=== PATIENT | female | born 1980 | race Caucasian/White ===

== ENCOUNTER → 2017-09-26 11:56 | Outpatient (CLI) | payer OTHER, SELFPAY ==
[2017-09-26 13:28] LABS: Amphetamine Urine VISTA NEGATIVE (<1000 ng/mL); Barbiturate Urine VISTA NEGATIVE (< 200 ng/mL); Benzodiazepine Urine VISTA NEGATIVE (< 200 ng/mL); Cocaine Urine VISTA NEGATIVE (< 300 ng/mL); Ecstacy Urine VISTA NEGATIVE (< 500 ng/mL); Methadone Urine VISTA NEGATIVE (< 300 ng/mL); PCP Urine VISTA NEGATIVE (< 25 ng/mL); THC Urine VISTA NEGATIVE (< 50 ng/mL); Vista UDS pH Range 7
== END ==
PROVIDERS: PCP Family Medicine; Visit Provider Anesthesiology Pain Medicine
DX: F11.20 Opioid dependence, uncomplicated (principal)
CPT/HCPCS: 80307

== ENCOUNTER → 2017-12-26 10:31 | Outpatient (CLI) | payer OTHER, SELFPAY ==
--- NOTE | 2017-12-26 10:33 | RAD_ITS ---
STUDY: X-RAY - LUMBAR SPINE REASON FOR EXAM: Female, 37 years old. Followed to-3 days ago. History of spinal fusion. TECHNIQUE: 3 view(s) of the lumbar spine were obtained. COMPARISON: None FINDINGS: Normal lumbar lordosis. There is no substantial scoliosis. There is a normal alignment of the vertebrae. There is posterior fusion at L5-S1 with intervertebral disc prosthesis placement. There is intervertebral disc space narrowing at L5-S1. The soft tissue structures are unremarkable. RAD/Lumbar Spine 2 or 3 Views IMPRESSION: Postsurgical changes at L5-S1 with no complications identified. Electronically Signed: Yash Hutton MD at 16:57 EDT , Service support ,
== END ==
PROVIDERS: Family Provider Family Medicine; PCP Family Medicine; Visit Provider Anesthesiology Pain Medicine
DX: Z98.1 Arthrodesis status (principal)
CPT/HCPCS: 72100

== ENCOUNTER → 2018-05-15 16:39 | Outpatient (CLI) | payer OTHER, SELFPAY ==
[2018-05-15 17:46] LABS: Amphetamine Urine VISTA POSITIVE (<1000 ng/mL); Barbiturate Urine VISTA NEGATIVE (< 200 ng/mL); Benzodiazepine Urine VISTA NEGATIVE (< 200 ng/mL); Cocaine Urine VISTA NEGATIVE (< 300 ng/mL); Ecstacy Urine VISTA NEGATIVE (< 500 ng/mL); Methadone Urine VISTA NEGATIVE (< 300 ng/mL); PCP Urine VISTA NEGATIVE (< 25 ng/mL); THC Urine VISTA NEGATIVE (< 50 ng/mL); Vista UDS pH Range 6
--- OUTSIDE RECORDS SUMMARY | 2018-06-27 15:58 | XMS RPT_ITS ---
:1980 Author Organization [facility] Care Team Providers Name Role Phone GERRI SHORT Admitting Unavailable GERRI SHORT Attending Unavailable GERRI SHORT Primary Care Unavailable NO, DOCTOR ON Consulting Unavailable AVA ARAMBULA Referring Unavailable VILLA VITAL DO Admitting Unavailable VILLA VITAL DO Attending Unavailable NO, DOCTOR ON Referring Unavailable VILLA VITAL DO Primary Care Unavailable NO, DOCTOR ON Consulting Unavailable VOLVAISHNAVI Parks DO Admitting Unavailable VOLVAISHNAVI Parks DO Attending Unavailable VAISHNAVI WAGNER DO Primary Care Unavailable NO, DOCTOR ON Consulting Unavailable Ava Arambula Attending Unavailable Gerri Short Referring Unavailable Primay Care Physicia, No Primary Care Unavailable Ava Arambula Attending Unavailable Gerri Short Primary Care Unavailable Ava Arambula Attending Unavailable Ava Arambula Referring Unavailable Gerri Short Primary Care Unavailable PROBLEMS PROBLEMS DATE TYPE CONDITION / CODE ATTENDING STATUS SOURCE 05/15/2018 Unknown F11.20 - Opioid Basali, Ayman Active [place] dependence, Community uncomplicated / Hospital F11.20(ICD-10) Repository PROCEDURES PROCEDURES No Procedure Records FoundRESULTS RESULTS URINE DRUG SCREEN Collected: 05/15/2018 Status: F Source: [place] (VISTA) 4:45 PM [facility] REPOSITORY Order Comment: List of Drugs Taken or Suspected? UNK TYPE CODE TESTS RESULT OUT OF RANGE REFERENCE UNITS LAB L505.0075 TO BE Normal CONFIRMED Result Comment: CONFIRMATORY TESTING FOR ALL POSITIVE URINE DRUG SCREEN RESULTS WILL ONLY BE SENT OUT UPON PHYSICIAN ORDER. VISTA Urine Drug Screen methods provide only preliminary analytical test results. A more specific alternate chemical method must be used in order to obtain a confirmed analytical result. Gas chromatography/mass spectrometery (GC/MS) is the preferred confirmatory method. Clinical consideration and professional judgement should be applied to any drug of abuse test result, particularly when preliminary positive results are used. URINE TCA TESTING MUST BE ORDERED SEPARATELY. USE TEST MNEMONIC: [facility] LAB L505.5005 VISTA UDS PH 6 Normal LAB L505.5015 <1000 High ng/mL AMPHETAMINES POSITIVE LAB L505.5025 < 200 ng/mL BARBITIURATES Normal NEGATIVE LAB L505.5035 < 200 ng/mL BENZODIAZIPINE Normal NEGATIVE LAB L505.5045 < 300 ng/mL COCAINE Normal NEGATIVE LAB L505.5055 < 500 ng/mL ECSTACY Normal NEGATIVE LAB L505.5065 < 300 ng/mL METHADONE Normal NEGATIVE LAB L505.5075 < 300 High ng/mL OPIATES POSITIVE LAB L505.5085 < 25 ng/mL PCP Normal NEGATIVE LAB L505.5095 < 50 ng/mL THC Normal NEGATIVE Performed By: #### L505.5000 #### [facility] [address] [place], [place], [id number] MISCELLANEOUS LAB Collected: 05/15/2018 Status: F Source: [place] PROCEDURE 4:45 PM [facility] REPOSITORY Order Comment: Test(s) Ordered: [id number] URINE DRUG SCEEN TYPE CODE TESTS RESULT OUT OF RANGE REFERENCE UNITS LAB L801.1541 Normal [facility] [place] Result Comment: TEST RESULT UNITS REF INTERVAL [id number] 6+Oxycodone-Bund Amphetamines Positive Uqtrbw=0925 Please Note: Amphetamine test includes Amphetamine and Methamphetamine. Amphetamine Positive Amphetamine GC/MS Conf 1220 ng/mL Zodywj=113 Methamphetamine Negative Iiupmw=175 Barbiturate Negative ng/mL Wexsmi=126 Benzodiazepines Negative ng/mL Wibdcq=869 Cannabinoids Negative ng/mL Cutoff=20 Cocaine (Metabolite) Negative ng/mL Tvrxdn=814 Opiates Negative ng/mL Sdorko=243 Opiate test includes Codeine, Morphine, Hydromorphone, Hydrocodone. Please Note: Confirmation performed by Mass Spectrometry Oxycodone/Oxymorph Positive Yxhmdu=684 Test includes Oxycodone and Oxymorphone Oxycodone Negative Bupgwx=333 Oxymorphone Positive Oxymorphone (GC/MS) 1072 ng/mL Btayiq=840 TESTING PERFORMED AT [facility]. ORIGINAL REPORT ON FILE IN LAB CONTAINS ADDITIONAL TEST SITE INFORMATION. Performed By: #### L801.1541 #### [facility] [address] [place], [address] LUMBAR SPINE 2 OR 3 Observed: 12/26/2017 Status: F Source: JAVA VIEWS 10:33 AM [facility] REPOSITORY [facility] Imaging Services [address] [place] [id number] Lumbar Spine 2 or 3 Views MR#: [id number] Acct: [id number] Name: HARI BRUCE Rep #: [id number] : 1980 F 37 From: Yash Hutton MD PCP: Gerri Short Status: REG CLI Study: Lumbar Spine 2 or 3 Views Date of Exam: 12/26/17 Exam# [id number] Ordering Dr: Ava Arambula MD STUDY: X-RAY - LUMBAR SPINE REASON FOR EXAM: Female, 37 years old. Followed to-3 days ago. History of spinal fusion. TECHNIQUE: 3 view(s) of the lumbar spine were obtained. COMPARISON: None FINDINGS: Normal lumbar lordosis. There is no substantial scoliosis. There is a normal alignment of the vertebrae. There is posterior fusion at L5-S1 with intervertebral disc prosthesis placement. There is intervertebral disc space narrowing at L5-S1. The soft tissue structures are unremarkable. RAD/Lumbar Spine 2 or 3 Views IMPRESSION: Postsurgical changes at L5-S1 with no complications identified. Electronically Signed: Yash Hutton MD at 16:57 EDT , Service support , CC: Ava Arambula MD; Gerri Short Ortho/Prosthetic Aide: Signed URINE DRUG SCREEN Collected: 09/26/2017 Status: F Source: [place] (VISTA) 12:02 PM [facility] REPOSITORY Order Comment: Comments: RUN LOWEST TEST List of Drugs Taken or Suspected? UNK TYPE CODE TESTS RESULT OUT OF RANGE REFERENCE UNITS LAB L505.0075 TO BE Normal CONFIRMED Result Comment: CONFIRMATORY TESTING FOR ALL POSITIVE URINE DRUG SCREEN RESULTS WILL ONLY BE SENT OUT UPON PHYSICIAN ORDER. VISTA Urine Drug Screen methods provide only preliminary analytical test results. A more specific alternate chemical method must be used in order to obtain a confirmed analytical result. Gas chromatography/mass spectrometery (GC/MS) is the preferred confirmatory method. Clinical consideration and professional judgement should be applied to any drug of abuse test result, particularly when preliminary positive results are used. URINE TCA TESTING MUST BE ORDERED SEPARATELY. USE TEST MNEMONIC: [facility] LAB L505.5005 VISTA UDS PH 7 Normal LAB L505.5015 <1000 ng/mL AMPHETAMINES Normal NEGATIVE LAB L505.5025 < 200 ng/mL BARBITIURATES Normal NEGATIVE LAB L505.5035 < 200 ng/mL BENZODIAZIPINE Normal NEGATIVE LAB L505.5045 < 300 ng/mL COCAINE Normal NEGATIVE LAB L505.5055 < 500 ng/mL ECSTACY Normal NEGATIVE LAB L505.5065 < 300 ng/mL METHADONE Normal NEGATIVE LAB L505.5075 < 300 High ng/mL OPIATES POSITIVE LAB L505.5085 < 25 ng/mL PCP Normal NEGATIVE LAB L505.5095 < 50 ng/mL THC Normal NEGATIVE Performed By: #### L505.5000 #### [facility] [place], [address] MISCELLANEOUS LAB Collected: 09/26/2017 Status: F Source: [place] PROCEDURE 12:02 PM [facility] REPOSITORY Order Comment: Comments: RUN LOWEST TEST Test(s) Ordered: [id number] TYPE CODE TESTS RESULT OUT OF RANGE REFERENCE UNITS LAB L801.1541 Normal [facility] [place] Result Comment: TEST RESULT UNITS REF INTERVAL [id number] 6+Oxycodone-Bund Amphetamines, Urine Negative ng/mL Dgebdh=1874 Amphetamine test includes Amphetamine and Methamphetamine. Barbiturate Negative ng/mL Qbjijk=319 Benzodiazepines Negative ng/mL Ucqfsd=341 Cannabinoids Negative ng/mL Cutoff=20 Cocaine (Metabolite) Negative ng/mL Yzvtif=461 Opiates Positive ng/mL Zvihio=957 Opiate test includes Codeine, Morphine, Hydromorphone, Hydrocodone. Please Note: Confirmation performed by Mass Spectrometry Codeine Negative Jsqggv=017 Morphine Negative Idpglv=970 Hydromorphone Positive Hydromorphone Confirm 616 ng/mL Grsruz=204 Hydrocodone Positive Hydrocodone Confirm 654 ng/mL Ogmgia=010 Oxycodone/Oxymorphone, Urine Negative ng/mL Ilrcrj=446 Test includes Oxycodone and Oxymorphone TESTING PERFORMED AT [facility]. ORIGINAL REPORT ON FILE IN LAB CONTAINS ADDITIONAL TEST SITE INFORMATION. Performed By: #### L801.1541 #### [facility] [address] [place], [address] EMERGENCY DEPARTMENT Observed: 09/12/2017 Status: F Source: BETO ROSS SUMMARY 8:19 AM [facility] EMERGENCY DEPARTMENT SUMMARY NAME NUMBER SEX AGE ADMIT DISC TYPE MED.RECORD# ALSPACH SEPTEMBER [id number] F 37 08/24/17 08/24/17 Kathryn [id number] ROOM:ER-C DATE OF :1980 PHYSICIAN NO.:[id number] PHYSICIAN NAME:Villa Vital D.O. PHYSICIAN:NO DOCTOR ON ADMISSION SHEET CHIEF COMPLAINT: Epigastric pain. HISTORY OF PRESENT ILLNESS: This patient presents to the emergency department secondary to symptoms that began this morning. She states that she had some left shoulder pain with some shortness of breath and a couple of hours prior to coming to the ED developed severe, sharp, stabbing epigastric pain. She does admit to a previous history of GERD though states her symptoms have never been this severe in the past. She denies any nausea or vomiting. PAST MEDICAL HISTORY: Positive for GERD, cervical cancer, back pain. PAST SURGICAL HISTORY: Includes hysterectomy and back surgery. MEDICATIONS: Medication list includes Prilosec, Vicodin. ALLERGIES: Include Imitrex, Tramadol, methadone and Penicillin. FAMILY HISTORY: Positive for mother with a history of [place] at age 50. Heart score is 1. SOCIAL HISTORY: Patient admits to smoking. Admits to rate alcohol use. Denies any drug use. PHYSICAL EXAMINATION: Temperature 97.5, pulse 102, respirations 16, blood pressure 124/83. Pulse oximetry is 98% on room air. In general, the patient is alert, awake, oriented, appears to be in obvious distress secondary to epigastric pain, nontoxic, cooperative to evaluation. HEENT: Unremarkable with moist mucous membranes Neck is supple without meningismus. Heart is regular rate and rhythm without murmurs, heaves, lift, or thrills. Lungs are essentially clear to auscultation bilaterally. Respirations are easy and symmetric without retractions or tachypnea. Abdomen is soft with focal tenderness in the epigastrium. There is no palpable mass appreciated. There is no rebound or rigidity. There is some voluntary guarding. Skin is warm, soft, dry and intact without rash. Peripheral pulses are +2/4 and present in all four extremities. Capillary refill is less than 2 seconds. No focal neurologic deficits are appreciated. DIAGNOSTIC DATA: Initial EKG reveals sinus rhythm, 95 beats per minute with no acute ST-T wave changes. Subsequently blood work was obtained. White cell count was slightly elevated at 11.9. Hemoglobin was 13.0, hematocrit was 36.9, platelets are 216,000. No left shift is appreciated. PT is 11.4, PTT is 29.1 and INR is 1. D-dimer was high at 457. Magnesium was normal at 2. B-type Natriuretic Peptide is 10. Troponin-I was less than 0.01. CMP was unremarkable except for a glucose of 122. EMERGENCY DEPARTMENT COURSE AND TREATMENT: Due to the patient's elevated D-dimer, a CT of the chest was performed. No pulmonary artery embolism is identified. The thoracic aorta is intact. Emphysema. No pneumothorax or pleural effusion and right hilar lymphadenopathy which measures out 1.7 x 1.6 cm. During the course of the ED visit, the patient was treated with intravenous fluids, Zofran, morphine as well as a GI cocktail. I had a detailed discussion with the patient concerning laboratory results, CT scan, EKG findings and plan of care. DIAGNOSIS: Gastritis. PLAN/DISPOSITION: She was told to increase omeprazole to 40 mg a day. She also was given a prescription for Carafate. An OARRS report was performed with regard to overdose risk of 500. Therefore, no further narcotics were prescribed for the patient. She was discharged home in stable satisfactory condition. Referred back to her primary care doctor, Dr. Short, for follow up in 5 days. D: Villa Vital DO TD: 20:20 JOB #: [id number] Electronically signed by: Villa Vital D.O. 09/12/17 08:19 Transcribed by: tania 08/25/2017 17:36 CT CHEST (PE PROTOCOL) Observed: 08/24/2017 Status: F Source: BETOJACKELYN ROSS 7:52 PM [place] [address] Patient: TEOSeptember Phone#: : 1980 Age: 37 Gender: F Pt. Type: ER Account: [id number] Location: 052 Ordering: VILLA VITAL Exam Date: 08/24/2017/19:35 Family Phys: NO DOCTOR Charge Code: [id number] Physician: Faulk Order #: [id number] DLP Dose#: PROCEDURE: CT CHEST WITH CONTRAST FOR PE COMPARISON: None. INDICATIONS: Chest pain TECHNIQUE: After obtaining the patient's consent, CT images were obtained with non-ionic intravenous contrast material. Multi-planar images were created to optimize visualization of vascular anatomy with MPR/MIPS and 3D imaging. All CT scans at this facility use dose modulation, iterative reconstruction, and/or weight based dosing when appropriate to reduce radiation dose to as low as reasonably achievable. IV CONTRAST: Omnipaque 350,74ml TOTAL DOSE: 9.0 CTDIvol(mGy) FINDINGS: VASCULATURE: Normal. No visible pulmonary arterial thrombus or attenuation. AORTA: No aortic aneurysm. LUNGS: There emphysematous changes in the upper lobes. There are dependent changes. MARCELLO: There are prominent right hilar lymph nodes, likely reactive. There is a calcified left hilar lymph node. MEDIASTINUM: There are small reactive mediastinal lymph nodes. CARDIAC: Normal. No enlargement, pericardial thickening, or significant calcification. PLEURA: Normal. No mass or effusion. CHEST WALL: Normal. No mass or axillary adenopathy. LIMITED ABDOMEN: There is a calcified granuloma in the spleen. BONES: Normal. No bony lesion or fracture. OTHER: Negative. Continued Report - Page 2 of 2 Patient: TEOSeptember Phone#: : 1980 Age: 37 Gender: F Pt. Type: ER Account: [id number] Location: 052 Ordering: VILLA VITAL Exam Date: 08/24/2017/19:35 Family Phys: NO DOCTOR Charge Code: [id number] Physician: Faulk Order #: [id number] DLP Dose#: CONCLUSION: 1. No pulmonary embolism. No other acute pulmonary parenchymal abnormality. 2. Emphysematous changes in the upper lobes. 3. Nonspecific prominent right hilar lymph nodes, possibly reactive. Dictated by: Adrianna Mckeon MD on 08/25/2017 at 8:51 Approved by: Adrianna Mckeon MD on 08/25/2017 at 8:51 CBC Collected: 08/24/2017 Status: F Source: BETO ROSS 6:15 PM [facility] REPOSITORY TYPE CODE TESTS RESULT OUT OF RANGE REFERENCE UNITS LAB CBC(LOINC) CBC Result Comment: CBC-COMPLETE BLOOD COUNT LAB WBC(LOINC) 4.5 - 10.8 x 10EE3/UL WBC High 11.9 LAB RBC(LOINC) 4.10 - x 10EE6/UL 5.30 RBC Low 3.84 LAB HEMOGLOBIN(LOINC 12.0 - g/dl ) 16.0 HEMOGLOBIN 13.0 LAB HEMATOCRIT(LOINC 34.0 - % ) 46.0 HEMATOCRIT 36.9 LAB MCV(LOINC) 80 - 99 fl MCV 96 LAB MCH(LOINC) 27 - 33 pg MCH High 34 LAB MCHC(LOINC) 32 - 36 X10 3 MCHC 35 LAB RDW/CV(LOINC) 12.0 - % 15.6 RDW/CV 12.9 LAB PLATELET(LOINC) 150 - 450 x10EE3/UL PLATELET 216 LAB MPV(LOINC) 6.6 - 10.5 fl MPV 9.9 Result Comment: AUTOMATED DIFFERENTIAL LAB NEUT %(LOINC) 46.0 - 76.0 % NEUT % 48.6 LAB LYMPH %(LOINC) 20.0 - 45.0 % LYMPH % 38.9 LAB MONOS %(LOINC) 0.0 - 10.0 % MONOS % High 10.1 LAB EO %(LOINC) 0.0 - 7.0 % EO % 1.5 LAB BASO %(LOINC) 0.0 - 2.0 % BASO % 0.9 LAB Lymph #(LOINC) 0.80 - 2.80 x10EE3/U L Lymph # High 4.60 LAB Neut #(LOINC) 1.50 - 7.10 x10EE3/U L Neut # 5.80 LAB [place] #(LOINC) 0.20 - 1.00 x10EE3/U L [place] # High 1.20 LAB EO #(LOINC) 0.00 - 0.50 x10EE3/U L EO # 0.20 LAB Baso #(LOINC) 0.00 - 0.10 x10EE3/U L Baso # 0.10 LAB MANUAL DIFF(LOINC) MANUAL DIFF N/A LAB MORPHOLOGY(LOINC ) MORPHOLOGY N/A Result Comment: {CD] Performed By: #### [id number] #### [place] [address] PROTHROMBIN TIME AND Collected: 08/24/2017 Status: F Source: [facility] INR 6:15 [facility] REPOSITORY TYPE CODE TESTS RESULT OUT OF REFERENCE UNITS RANGE LAB PROTHROMBIN TIME AND INR(LOINC) PROTHROMBIN TIME AND INR Result Comment: PROTHROMBIN TIME AND INR LAB PT-COUMADIN(LOINC) sec PT-COUMADIN 11.4 LAB INR(LOINC) 0.8 - 1.2 INR 1.0 Result Comment: THE HEMOSIL THROMBOPLASTIN REAGENT USED IN THE PROTHROMBIN TIME TEST INTERACTS WITH THE DRUG CUBICIN (DAPTOMYCIN) AND WILL RESULT IN FALSELY ELEVATED PT / INR RESULTS INR INTERPRETATION INR INDICATION PREVENTION AND TREATMENT OF THROMBOEMBOLISM ASSOCIATED WITH: 2.0 - 3.0 ATRIAL FIBRILLATION, BIOPROSTHETIC HEART VALVES, PULMONARY EMBOLISM, VENOUS THROMBOSIS, SYSTEMIC EMBOLISM POST MYOCARDIAL INFARCTION 2.5 - 3.5 MECHANICAL HEART VALVES Performed By: #### [id number] #### [place] [address] D-DIMER, QUANTITATIVE Collected: 08/24/2017 Status: F Source: [facility] 6:15 [facility] REPOSITORY TYPE CODE TESTS RESULT OUT OF REFERENCE UNITS RANGE LAB D-DIMER, QUANTITATI VE(LOINC) D-DIMER, QUANTITATIVE Result Comment: QUANT D-DIMER LAB D-DIMER 0 - 230 ng/ml QUANT(LOINC) High D-DIMER QUANT 457 Performed By: #### [id number] #### [place] [address] TROPONIN Collected: 08/24/2017 Status: F Source: [facility] 6:15 [facility] REPOSITORY TYPE CODE TESTS RESULT OUT OF REFERENCE UNITS RANGE LAB TROPONIN 0.00 - 0.05 ng/ml I(LOINC) TROPONIN I <0.01 Result Comment: Elevated troponin (above the 99th percentile) usually indicates myocardial ischemia. Results must be interpreted within the clinical setting. 1.Non-ischemic pathology can also cause elevated troponin levels (e.g., acute pulmonary embolism, myocarditis, pericarditis, heart failure, intracranial injury, rhabdomyolisis, sepsis, shock and renal insufficiency). 2.Approximately 1% of healthy adults have elevated troponin levels. 3.Analytical false positive results rarely occur(due to multiple interferences such as heterophile antibodies). Performed By: #### [id number] #### [facility],[address] [place] [address] CMP WITH EGFR Collected: 08/24/2017 Status: F Source: [facility] 6:15 PM [facility] REPOSITORY TYPE CODE TESTS RESULT OUT OF RANGE REFERENCE UNITS LAB CMP with eGFR(LOINC) CMP with eGFR Result Comment: COMPREHENSIVE METABOLIC PANEL LAB SODIUM(LOINC) 136 - 145 mmol/l SODIUM 138 LAB POTASSIUM(LOINC) 3.5 - 5.1 mmol/L POTASSIUM 3.5 LAB CHLORIDE(LOINC) 98 - 107 mmol/L CHLORIDE 107 LAB CO2(LOINC) 21.0 - mmol/L 31.0 CO2 23.1 LAB GLUCOSE(LOINC) 74 - 106 mg/dl GLUCOSE High 122 LAB BUN(LOINC) 6 - 20 mg/dl BUN 10 LAB CREATININE(LOINC) 0.6 - 1.2 mg/dl CREATININE 0.7 LAB AST/SGOT(LOINC) 13 - 39 U/L AST/SGOT 13 LAB ALK PHOS(LOINC) 38 - 126 U/L ALK PHOS 46 LAB CALCIUM(LOINC) 8.6 - mg/dl 10.2 CALCIUM 9.0 LAB TOTAL 6.4 - 8.3 g/dl PROTEIN(LOINC) TOTAL PROTEIN 6.5 LAB ALBUMIN(LOINC) 3.4 - 4.8 g/dL ALBUMIN 3.8 LAB GLOBULIN(LOINC) 1.5 - 3.8 G/DL GLOBULIN 2.7 LAB A/G RATIO(LOINC) 0.9 - 1.6 A/G RATIO 1.4 LAB TOTAL BILI(LOINC) 0.0 - 1.5 mg/dl TOTAL BILI 0.2 LAB B/C RATIO(LOINC) 0 - 30 ratio B/C RATIO 14 LAB ALT/SGPT(LOINC) 8 - 35 U/L ALT/SGPT 14 LAB ANION GAP(LOINC) 10 - 20 mmol/L ANION GAP 11 LAB AGE(LOINC) years AGE 37 LAB eGFR(LOINC) 60 - 999 ML/MINUTE eGFR >60 LAB eGFR(AA)(LOINC) 60 - 999 ML/MINUTE eGFR(AA) >60 Result Comment: ACCORDING TO THE NATIONAL KIDNEY DISEASE EDUCATION PROGRAM(NKDE), A NORMAL eGFR IS A VALUE GREATER THAN OR EQUAL TO 60 ML/MIN/1.73 SQ METERS. CHRONIC KIDNEY DISEASE: <60mL/MIN/1.73 SQ METERS KIDNEY FAILURE: <15mL/MIN/1.73 SQ METERS THIS TEST SHOULD ONLY BE USED FOR PATIENTS 18 YEARS OF AGE AND OLDER. Performed By: #### [id number] #### [place] [address] MAGNESIUM Collected: 08/24/2017 Status: F Source: [facility] 6:15 PM [facility] REPOSITORY TYPE CODE TESTS RESULT OUT OF REFERENCE UNITS RANGE LAB MAGNESIUM( 1.6 - 2.6 mg/dl LOINC) MAGNESIUM 2.0 Performed By: #### [id number] #### [place] [address] APTT Collected: 08/24/2017 Status: F Source: BETO LEESHAKIR 6:15 PM [facility] TYPE CODE TESTS RESULT OUT OF RANGE REFERENCE UNITS LAB PTT(LOINC) 21.6 - 35.4 sec PTT 29.1 Performed By: #### [id number] #### [place] [id number] BNP (B-TYPE NATRIURETIC Collected: 08/24/2017 Status: F Source: EBTO SALAMANCASUHAIL PEPTIDE) 6:15 PM [facility] TYPE CODE TESTS RESULT OUT OF RANGE REFERENCE UNITS LAB BNP(LOINC) 1 - 100 pg/ml BNP 10 Performed By: #### [id number] #### [place] [address] EMERGENCY REPORT Observed: 07/05/2017 Status: F Source: BETO ROSS 9:50 AM [facility] EMERGENCY ROOM REPORT NAME NUMBER SEX AGE ADMIT DISC TYPE MED.RECORD# ALSPACH SEPTEMBER [id number] F 37 05/27/17 05/27/17 Kathryn [id number] ROOM:ER-B DATE OF :1980 PHYSICIAN NO.:[id number] PHYSICIAN NAME:VAISHNAVI WAGNER DO PHYSICIAN: FAMILY PHYSICIAN: NO DOCTOR ADDENDUM NOTE: The patient had arrived for chronic low back pain. We did explain to her that at this time we cannot write opioid pain medication for her chronic back pain and that she would need to continue to followup with her primary care doctor. 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 D: Vaishnavi [place] DO TD: 18:58 JOB #: [id number] Electronically signed by: Not Currently Signed Transcribed by: fidencio 05/29/2017 03:34 Electronically signed by: VAISHNAVI WAGNER DO 07/05/17 09:49 EMERGENCY ROOM REPORT [facility] SEPT[facility] 18 EMERGENCY REPORT Observed: 07/05/2017 Status: F Source: [facility] 9:50 AM [facility] EMERGENCY ROOM REPORT NAME NUMBER SEX AGE ADMIT DISC TYPE MED.RECORD# ALSPACH SEPTEMBER [id number] F 37 05/27/17 05/27/17 E.RZachery [id number] ROOM:ER-B DATE OF :1980 PHYSICIAN NO.:[id number] PHYSICIAN NAME:VAISHNAVI WAGNER DO PHYSICIAN: FAMILY PHYSICIAN: NO DOCTOR CHIEF COMPLAINT: Back pain. HISTORY OF PRESENT ILLNESS: The patient is a 37-year-old female who present for back pain. The patient states the back pain is in the lower lumbar area, paraspinal, not midline. The patient states it is pain that she has been experiencing for approximately 18 years. The patient states that it has progressively worsened over the last 1 to 2 weeks. The patient states that she had been getting some opioid medications, however she does not take them anymore. The patient states that she does take Celebrex and multiple other NSAIDs at this time, none of which have provided her any relief. The patient came to the ED today as she states she is having difficulty sleeping secondary to the pain. The patient states that she does have a primary care doctor followup on Tuesday, 48 hours from now. However, she states that the pain has not gotten any better, and thus she came to the ED. PAST MEDICAL HISTORY: Fibromyalgia, rheumatoid arthritis and chronic pain. PAST SURGICAL HISTORY: Hysterectomy and low back surgery. MEDICATIONS: Please see medication list. ALLERGIES: Imitrex, methadone, penicillin, tramadol. SOCIAL HISTORY: She lives at home with her family. She smokes 1/2 pack of cigarettes per day. No alcohol or drugs. REVIEW OF SYSTEMS: Chronic back pain. The remainder of the review of systems is unremarkable. PHYSICAL EXAMINATION: Vital signs: Temperature 97.9, pulse 111, respirations 20, blood pressure 123/95, O2 saturation 98% on room air. CONSTITUTIONAL: No acute distress. Alert and oriented and nontoxic appearing. CARDIAC: Tachycardiac. Regular rhythm. Negative for murmurs, rubs or gallops. Positive S1, S2. PULMONARY: Clear to auscultation bilaterally. Negative for wheezes, rales, or crackles. ABDOMEN: Soft, nontender and nondistended. Normal bowel sounds in all 4 quadrants. Negative Haddad's. Negative McBurney's. MUSCULOSKELETAL: Negative for midline spinal tenderness. Normal radial and DP pulses. Negative for lower extremity edema or ulceration. No skin breakdown. Reproducible pain to palpation of the lumbar area paraspinal muscles, soft tissue at approximately L1-L5. Negative for SC joint pain. No evidence of erythema, edema, or vesicular rash. Normal patellar reflexes bilaterally. DIAGNOSTIC DATA: EMERGENCY DEPARTMENT COURSE AND TREATMENT: At this time, the patient states this is the exact pain she has been experiencing for approximately 18 years. The patient denies any new pain or change. She states it is just the same chronic pain. The patient did have an OARRS report which was fairly robust. The patient at this time has been given a shot of Toradol. I have explained EMERGENCY ROOM REPORT [facility] SEPTEMBER 18 [facility] EMERGENCY ROOM REPORT NAME NUMBER SEX AGE ADMIT DISC TYPE MED.RECORD# ALSPACH SEPTEMBER [id number] F 37 05/27/17 05/27/17 E.R. [id number] ROOM:ER-B DATE OF :1980 PHYSICIAN NO.:[id number] PHYSICIAN NAME:VAISHNAVI WAGNER DO PHYSICIAN: FAMILY PHYSICIAN: NO DOCTOR to her that given the fact that this is chronic pain that has been ongoing for several years, and she has already been receiving opioid pain medication, we were unable to provide her with any additional opioid medications at this time. I did offer the patient muscle relaxers, she stated that she already has some at home. I also suggested possible steroid, in which she states she has been on steroids and this is why I'm so fat. The patient states that at this time, nothing really makes her pain improve other than Percocet. I again explained to her that while I do feel for her and this chronic pain, that opioid medication is nothing that we can prescribe. DIAGNOSIS: Chronic back pain. PLAN/DISPOSITION: The patient will be seeing her primary care doctor in 48 hours, in which I stated they could manage her chronic pain. At this time, the patient has been discharged home. D: Vaishnavi Wagner DO TD: 17:42 JOB #: [id number] Electronically signed by: Not Currently Signed Transcribed by: fidencio 05/28/2017 22:22 Electronically signed by: VAISHNAVI WAGNER DO 07/05/17 09:49 EMERGENCY ROOM REPORT [facility] SEPTEMBER 19 [facility] EMERGENCY ROOM REPORT NAME NUMBER SEX AGE ADMIT DISC TYPE MED.RECORD# [facility] SEPTEMBER [id number] F 37 05/27/17 05/27/17 E.RZachery [id number] ROOM:ER-B DATE OF :1980 PHYSICIAN NO.:[id number] PHYSICIAN NAME:VAISHNAVI WAGNER DO PHYSICIAN: FAMILY PHYSICIAN: NO DOCTOR EMERGENCY ROOM REPORT [facility] SEPTEMBER 20 MR LUMBAR SP WO Observed: 06/08/2017 Status: F [facility]42 AM [place] [address] Patient: TEOSeptember Phone#: : 1980 Age: 37 Gender: F Pt. Type: Out Account: [id number] Location: Ordering: GERRI SHORT Exam Date: 06/08/2017/7:43 Family Phys: NO DOCTOR Charge Code: [id number] Physician: Faulk Order #: [id number] DLP Dose#: PROCEDURE: MRI LUMBAR SPINE WITHOUT CONTRAST COMPARISON: None. INDICATIONS: Chronic low back pain TECHNIQUE: A variety of imaging planes and parameters were utilized for visualization of suspected pathology. FINDINGS: PARASPINAL AREA: Normal with no visible mass. BONES: No fracture, pars defect, or osseous lesion. CORD/CAUDA EQUINA: Normal caliber, contour, and signal intensity. LUMBAR DISC LEVELS: L1-L2: There is mild broad-based disc bulging to the right of midline. The spinal canal and foramina are patent. L2-L3: No significant disc/facet abnormality, spinal stenosis, or foraminal stenosis. L3-L4: Mild annular disc bulging is present. The spinal canal and foramina are patent. L4-L5: There is minimal retrolisthesis. There is annular bulging with mild broad-based central bulge posteriorly. A small focus of bright signal is present consistent with annular rupture. There is mild narrowing of the spinal canal. Degenerative changes present at the articular facets. Surgical hardware is present. L5-S1: Disc prosthesis is present. There is surgical hardware. The foramina are patent. CONTINUED ON NEXT PAGE... Continued Report - Page 2 of 2 Patient: TEO SEPTEMBER Phone#: : 1980 Age: 37 Gender: F Pt. Type: Out Account: [id number] Location: Ordering: GERRI SHORT Exam Date: 06/08/2017/7:43 Family Phys: NO DOCTOR Charge Code: [id number] Physician: Faulk Order #: [id number] DLP Dose#: CONCLUSION: 1. Surgical hardware is present at the L5 and S1 levels. A disc prosthesis is present. 2. There are is broad-based dorsal bulging at L4-5. Bright signal is present posteriorly consistent with annular rupture. 3. There is minimal retrolisthesis at the L4-5 level. Dictated by: Alexia Garcia MD on 06/08/2017 at 16:26 Approved by: Alexia Garcia MD on 06/08/2017 at 16:26 ALLERGIES ALLERGIES DATE TYPE / CODE NAME / CODE REACTION SEVERITY SOURCE Drug PENICILLINS RASH Moderate Beto Pomerene Allergy/416 (CLASS)/18427071(R (Severity [facility] 495659(SNOM XNORM) Modifier) Hospital ED CT) (Qualifier Repository Value) Drug PENICILLIN/4367279 RASH Moderate Beto Pomerene Allergy/416 3(RXNORM) (Severity [facility] 176856(SNOM Modifier) Hospital ED CT) (Qualifier Repository Value) Drug METHADONE/48875375 Moderate Beto Pomerene Allergy/416 (RXNORM) ([facility] 134977(SNOM Modifier) [facility] ED CT) (Qualifier Repository Value) Drug TRAMADOL/50653270( Moderate Beto Pomerene Allergy/416 RXNORM) ([facility] 366091(SNOM Modifier) [facility] ED CT) (Qualifier Repository Value) Drug IMITREX/39036983(R Moderate Beto Pomerene Allergy/416 XNORM) ([facility] 616558(SNOM Modifier) [facility] ED CT) (Qualifier Repository Value) ENCOUNTERS ENCOUNTERS ADMIT/DISCHARGE ACCOUNT ADMITTING ENCOUNTER LOCATION SOURCE NUMBER CLASS 05/15/2018 [id number] Ambulatory Triplett Triplett 6 [facility] ing:LAB Repository 12/26/2017 [id number] Ambulatory Triplett Kerri 3 [facility] ing:RAD Repository 09/26/2017 [id number] [facility] ing:LAB Repository 08/24/2017/ [id number] ZAHRAA, Emergency [facility] [place] [address] 8 VILLA DO oom: ERBed: C [facility] Repository 06/08/2017/ [id number] GERRI SHORT Ambulatory [address] Repository 05/27/2017/ [id number] VAISHNAVI WAGNER [facility] [place] [address] 7 DO oom: ERBed: B [facility] Repository PAYERS PAYERS ENCOUNTER GUARANTOR PAYER SUBSCRIBER SOURCE 05/15/2018September M Primary SEPTEMBER M Triplett [id number] SR Insurance:[facility]: [address] [id number] [id number] [address]Odj: ([phone]) Number: Repository [phone] ) [id number] Date:[id number], [place] [address]CT: 05/15/2018 Secondary NOT GIVENUNK Kerri Insurance:SELF PAY [facility] Number: Effective Repository Date:2018-05-15 12/26/2017 HARI M Primary SEPTEMBER M Triplett [id number] SR [facility]: [address] [id number] [id number] Hospital [address]Rfa: (419) Number: Repository [phone] () [id number] Date:4158-76-96RN [facility] [address], [place] [address]HB: 12/26/2017 Secondary NOT GIVENUNK Kerri Insurance:SELF PAY [facility] Number: Effective Repository Date:2017-12-26 09/26/2017 HARI M Primary SEPTEMBER Walter Manning [id number] SR Insurance:[facility]: [address] [address]Tympyj [id number] Hospital [address]Dqb: (419) Number: Repository [phone] () [id number] Date:[id number], [place] [address]CR: 09/26/2017 Secondary NOT GIVENUNK Triplett Insurance:SELF PAY [facility] Number: Effective Repository Date:2017-09-26 08/24/2017September Primary SEPTEMBER Walter BRUCEDOB: [facility] [id number] [facility] [address] Repository [address] [place] [address], Number: [address] [place] [phone]: [id number] [place] [phone] Date:Plan Name:X4 () 06/08/2017September Primary SEPTEMBER Walter Ross [facility] Insurance:[facility] [id number] [facility] [address] Repository [address] [place] [address], Number: [address] [place] [phone]: [id number] [place] [phone] Date:Plan Name:X4 () 05/27/2017September Primary SEPTEMBER Walter BRUCEDOB: Insurance:[facility]: [facility] [id number] [facility] [id number] [facility] RT PLAN OUTPATPolicy [address] Repository [address] [place] [address], Number: [address] [place] [phone]: [id number] [place] [phone] Date:Plan Name:X4 (HP)
== END ==
PROVIDERS: Family Provider Family Medicine; PCP Family Medicine; Referring Provider Anesthesiology Pain Medicine; Visit Provider Anesthesiology Pain Medicine
DX: F11.20 Opioid dependence, uncomplicated (principal)
CPT/HCPCS: 80307

== ENCOUNTER → 2018-08-21 09:59 | Outpatient (CLI) | payer OTHER, SELFPAY ==
[2018-07-11 09:42] VITALS: BMI 31.7
[2018-08-21 11:08] LABS: Amphetamine Urine VISTA NEGATIVE (<1000 ng/mL); Barbiturate Urine VISTA NEGATIVE (< 200 ng/mL); Benzodiazepine Urine VISTA NEGATIVE (< 200 ng/mL); Cocaine Urine VISTA NEGATIVE (< 300 ng/mL); Ecstacy Urine VISTA NEGATIVE (< 500 ng/mL); Methadone Urine VISTA NEGATIVE (< 300 ng/mL); PCP Urine VISTA NEGATIVE (< 25 ng/mL); THC Urine VISTA NEGATIVE (< 50 ng/mL); Vista UDS pH Range 5
== END ==
PROVIDERS: Family Provider Internal Medicine; PCP Internal Medicine; Referring Provider Anesthesiology Pain Medicine; Visit Provider Anesthesiology Pain Medicine
DX: F11.20 Opioid dependence, uncomplicated (principal)
CPT/HCPCS: 80307

== ENCOUNTER → 2019-01-09 07:57 | Outpatient (CLI) | payer OTHER, SELFPAY ==
[2018-07-11 09:42] VITALS: BMI 31.7
--- NOTE | 2019-01-09 08:03 | RAD_ITS ---
STUDY: X-RAY - CERVICAL SPINE REASON FOR EXAM: Female, 38 years old. Neck pain TECHNIQUE: 3 view(s) of the cervical spine were obtained. COMPARISON: None FINDINGS: Normal anterior atlantoaxial articulation. Normal odontoid process. There is straightening of the normal cervical lordosis. Normal vertebral bodies and endplates. Normal disc space heights. Normal visualized intervertebral neuroforamina. The soft tissue structures are unremarkable. RAD/Cerv Spine 2 or 3 Views IMPRESSION: Normal x-ray examination of the visualized cervical spine. Electronically Signed: Shekhar Sal MD at 8:34 EDT , Service support ,
== END ==
PROVIDERS: Family Provider Internal Medicine; PCP Internal Medicine; Referring Provider Anesthesiology Pain Medicine; Visit Provider Anesthesiology Pain Medicine
DX: M54.2 Cervicalgia (principal)
CPT/HCPCS: 72040

== ENCOUNTER → 2019-02-01 15:55 | Outpatient (CLI) | payer OTHER, SELFPAY ==
[2018-07-11 09:42] VITALS: BMI 31.7
--- NOTE | 2019-02-01 16:05 | MRI_ITS ---
STUDY: MRI LUMBAR SPINE WITHOUT CONTRAST REASON FOR EXAM: Female, 38 years old. Low back pain radiating to right leg TECHNIQUE: Standardized fat and water weighted pulse sequences were obtained in the sagittal and axial planes. COMPARISON: None FINDINGS: T12-L1: Normal endplates. Normal disc height, hydration and morphology. Normal bilateral facet joints. Normal central canal and bilateral lateral recesses. Normal bilateral intervertebral neural foramina. Normal lumbar lordosis. There is no substantial scoliosis. Normal conus medullaris that terminates at T12-L1 L1-2: Normal endplates. Normal disc height, hydration and morphology. Normal bilateral facet joints. Normal central canal and bilateral lateral recesses. Normal bilateral intervertebral neural foramina. L2-3: Normal endplates. Normal disc height, hydration and morphology. Normal bilateral facet joints. Normal central canal and bilateral lateral recesses. Normal bilateral intervertebral neural foramina. L3-4: Normal endplates. Normal disc height, hydration and morphology. Normal bilateral facet joints. Normal central canal and bilateral lateral recesses. Normal bilateral intervertebral neural foramina. L4-5: Normal endplates. Normal disc height, desiccation and minor annular bulge with small central disc protrusion. Mild facet arthropathy.. Normal central canal and bilateral lateral recesses. Mild bilateral neuroforaminal stenosis.. L5-S1: Status post bilateral laminectomy and posterior fusion. Normal endplates. Normal disc height, hydration and morphology. Normal bilateral facet joints. Normal central canal and bilateral lateral recesses. Normal bilateral intervertebral neural foramina. Normal visualized sacral ala. Normal visualized paraspinous soft tissue structures. MRI/Spine Lumbar (Routine) IMPRESSION: Mild spinal stenosis at L4-5 secondary to bulging annulus and small central disc protrusion with bilateral facet arthropathy. Postop changes at L5-S1 Electronically Signed: Sincere Pak MD at 17:42 EDT , Service support ,
== END ==
PROVIDERS: Family Provider Internal Medicine; PCP Internal Medicine; Referring Provider Anesthesiology Pain Medicine; Visit Provider Anesthesiology Pain Medicine
DX: M54.9 Dorsalgia, unspecified (principal); M79.606 Pain in leg, unspecified
CPT/HCPCS: 72148

== ENCOUNTER → 2019-05-29 13:32 | Outpatient (CLI) | payer MEDICAID, SELFPAY ==
[2018-07-11 09:42] VITALS: BMI 31.7
--- NOTE | 2019-05-29 13:34 | RAD_ITS ---
STUDY: X-RAY - LUMBAR SPINE REASON FOR EXAM: Female, 39 years old. Pain TECHNIQUE: 4 view(s) of the lumbar spine were obtained including flexion and extension. COMPARISON: None FINDINGS: Normal lumbar lordosis. There is no substantial scoliosis. Grade 1 retrolisthesis at L3-4. Postop change status post bilateral laminectomy and posterior fusion with disc spacer placement. No evidence for acute fracture or subluxation. Mild narrowing of L3-4 disc space The soft tissue structures are unremarkable. No gross instability is observed on flexion or extension RAD/L/S Spine Min 4 Views IMPRESSION: Mild spondylosis and postsurgical changes. No acute fracture Electronically Signed: Sincere Pak MD at 19:06 EST , Service support ,
== END ==
PROVIDERS: Referring Provider Orthopaedic Surgery; Visit Provider Orthopaedic Surgery
DX: M54.5 Low back pain (principal)
CPT/HCPCS: 72110

== ENCOUNTER → 2019-05-31 09:42 | Outpatient (CLI) | payer MEDICAID, SELFPAY ==
[2019-05-31 09:36] VITALS: BMI 31.7
--- NOTE | 2019-05-31 09:43 | RAD_ITS ---
STUDY: X-RAY - PELVIS AND RIGHT HIP REASON FOR EXAM: Chronic pain, no specific injury. TECHNIQUE: 2 views of the pelvis and hip. COMPARISON: None. FINDINGS: Normal visualized soft tissue structures. There are postoperative changes of the lumbosacral junction. Normal bilateral iliac wings, sacroiliac joints and visualized sacrum. Normal bilateral superior and inferior pubic rami. Normal pubic symphysis. Normal bilateral ischial tuberosities. Normal visualized femoral head. Normal acetabulum. Normal hip joint. RAD/HIP, UNI W/ Pelvis 2-3 Views IMPRESSION: Postoperative changes of the lumbosacral junction. Otherwise, unremarkable x-ray examination of the pelvis and left hip. Electronically Signed: Micah Oleary MD at 12:47 EST Tel , Service support ,
== END ==
PROVIDERS: Family Provider Internal Medicine; PCP Internal Medicine; Referring Provider Orthopaedic Surgery; Visit Provider Orthopaedic Surgery
DX: M25.551 Pain in right hip (principal)
CPT/HCPCS: 73502

== ENCOUNTER → 2019-12-17 10:16 | Outpatient (CLI) | payer MEDICAID, SELFPAY ==
[2019-12-11 13:27] VITALS: BMI 31.7
[2019-12-17 11:13] LABS: Amphetamine Urine VISTA NEGATIVE (<1000 ng/mL); Barbiturate Urine VISTA NEGATIVE (< 200 ng/mL); Benzodiazepine Urine VISTA NEGATIVE (< 200 ng/mL); Cocaine Urine VISTA NEGATIVE (< 300 ng/mL); Ecstacy Urine VISTA NEGATIVE (< 500 ng/mL); Methadone Urine VISTA NEGATIVE (< 300 ng/mL); PCP Urine VISTA NEGATIVE (< 25 ng/mL); THC Urine VISTA NEGATIVE (< 50 ng/mL); Vista UDS pH Range 6
== END ==
PROVIDERS: PCP Internal Medicine; Referring Provider Anesthesiology Pain Medicine; Visit Provider Anesthesiology Pain Medicine
DX: F11.20 Opioid dependence, uncomplicated (principal)
CPT/HCPCS: 80307

== ENCOUNTER → 2019-12-26 09:27 | Outpatient (CLI) | payer MEDICAID, SELFPAY ==
[2019-12-11 13:27] VITALS: BMI 31.7
--- NOTE | 2019-12-26 09:30 | RAD_ITS ---
CLINICAL HISTORY: Female, 39 years old. Right hip pain. PROCEDURE: ARTHROGRAM - RIGHT HIP CONSENT: The procedure as well as the benefits and possible complications including infection and bleeding were explained to the patient. Informed consent was obtained. FLUOROSCOPY TIME (if supplied): (50 seconds) minutes/seconds Injection Information: 10 cc of dilute Dotarem Number of images obtained: 1 TECHNIQUE: (All elements of maximal sterile barrier technique followed, including US elements as applicable) The patient was in the supine position. The overlying skin was prepped and draped in usual sterile fashion. Following local anesthetic application and under direct fluoroscopic guidance, a 22-gauge spinal needle was placed into the hip joint. 2 cc of Isovue-300 was injected for confirmation. Following this, 10 cc of dilute MRI contrast was injected. The patient tolerated the procedure well. RAD/Arthrogram Hip w/ MRI IMPRESSION: Successful right hip arthrogram for MRI examination. Electronically Signed: Lloyd Rodriguez, at 11:14 EDT , Service support ,
--- NOTE | 2019-12-26 09:46 | MRI_ITS ---
STUDY: MR RIGHT HIP ARTHROGRAPHY REASON FOR EXAM: Chronic right hip pain for years, right leg numbness. TECHNIQUE: Standardized fat and water weighted pulse sequences were obtained in all 3 orthogonal planes after intra-articular instillation of dilute Dotarem. COMPARISON: Radiographs 05/31/2019. FINDINGS: Normal hip joint without articular joint space narrowing. Normal acetabulum. There is a tear of the anterosuperior labrum (SHERRY images 9, 10). There is a small femoral cam lesion (T1 coronal image 9). Normal femoral neck and intratrochanteric region. Normal gluteus minimus, medius and iliopsoas tendons and distal insertions. There is no trochanteric, iliopsoas or iliopectineal bursitis. Normal superior and inferior pubic rami. Normal pubic symphysis. Normal ischial tuberosity. Normal origin of the hamstring tendons. Normal visualized iliac wing. Normal visualized soft tissue structures of the pelvis. MRI/Lower Ext/Jt Only/W Contrast IMPRESSION: Anterosuperior labral tear. Small femoral cam lesion suggestive of femoroacetabular impingement. Electronically Signed: Micah Oleary MD at 12:58 EDT Tel , Service support ,
== END ==
PROVIDERS: PCP Internal Medicine; Referring Provider Orthopaedic Surgery; Visit Provider Orthopaedic Surgery
DX: M24.851 Other specific joint derangements of right hip, not elsewhere classified (principal); M70.61 Trochanteric bursitis, right hip; Y93.9 Activity, unspecified; G89.29 Other chronic pain
CPT/HCPCS: 27093; 73722; 77002; A9575; Q9967

== ENCOUNTER → 2020-08-20 13:22 | Outpatient (CLI) | payer MEDICAID, SELFPAY ==
[2020-01-08 11:22] VITALS: BMI 31.7
[2020-08-20 14:51] LABS: Amphetamine Urine VISTA NEGATIVE (<1000 ng/mL); Barbiturate Urine VISTA NEGATIVE (< 200 ng/mL); Benzodiazepine Urine VISTA NEGATIVE (< 200 ng/mL); Cocaine Urine VISTA NEGATIVE (< 300 ng/mL); Ecstacy Urine VISTA NEGATIVE (< 500 ng/mL); Methadone Urine VISTA NEGATIVE (< 300 ng/mL); PCP Urine VISTA NEGATIVE (< 25 ng/mL); THC Urine VISTA NEGATIVE (< 50 ng/mL); Vista UDS pH Range 7
== END ==
PROVIDERS: PCP Internal Medicine; Referring Provider Anesthesiology Pain Medicine; Visit Provider Anesthesiology Pain Medicine
DX: F11.20 Opioid dependence, uncomplicated (principal)
CPT/HCPCS: 80307

== ENCOUNTER → 2020-12-23 12:39 | Outpatient (CLI) | payer MEDICAID, SELFPAY ==
[2020-01-08 11:22] VITALS: BMI 31.7
[2020-12-23 13:48] LABS: Amphetamine Urine VISTA POSITIVE (<1000 ng/mL); Barbiturate Urine VISTA NEGATIVE (< 200 ng/mL); Benzodiazepine Urine VISTA POSITIVE (< 200 ng/mL); Cocaine Urine VISTA NEGATIVE (< 300 ng/mL); Ecstacy Urine VISTA NEGATIVE (< 500 ng/mL); Methadone Urine VISTA NEGATIVE (< 300 ng/mL); PCP Urine VISTA NEGATIVE (< 25 ng/mL); THC Urine VISTA NEGATIVE (< 50 ng/mL); Vista UDS pH Range 6
== END ==
PROVIDERS: PCP Internal Medicine; Referring Provider Anesthesiology Pain Medicine; Visit Provider Anesthesiology Pain Medicine
DX: F11.20 Opioid dependence, uncomplicated (principal)
CPT/HCPCS: 80307

== ENCOUNTER → 2020-12-29 15:25 | Outpatient (CLI) | payer MEDICAID, SELFPAY ==
[2020-12-29 14:50] VITALS: BMI 31.7
[2020-12-29 17:14] LABS: Absolute Lymphocyte Count 3.61 X10^3/uL (0.83-4.51); Absolute Neutrophil Count 9.5 X10^3/uL (2.0-7.7); Basophil# 0.05 X10^3/uL; Basophil% 0.4 % (0-1); Eosinophil# 0.03 X10^3/uL; Eosinophils% 0.2 % (0-5); Hematocrit 39.9 % (37-47); Hemoglobin 13.4 g/dL (12.0-15.0); Lymphocyte # 3.61 X10^3/ul (0.83-4.51); Lymphocyte % 25.5 % (19-41); Mean Corp Hgb Conc 33.6 g/dL (32-36); Mean Corpuscular Hgb 33.8 pg (27.0-32.0); Mean Corpuscular Volume 100.8 fL (81-99); Mean Platelet Vol. 11.1 fl (6.2-12.0); Monocyte# 0.88 X10^3/uL; Monocyte% 6.2 % (0-10); NRBC Flagged by Analyzer 0 % (0-5); Neutrophil # 9.53 X10^3/uL (2.7-7.7); Neutrophil % 67.2 % (47-70); Platelet Count 302 K/mm3 (150-450); RBC Distribution Width CV 13.2 % (11.6-14.6); RBC Distribution Width SD 48.2 fl (35.1-43.9); Red Blood Count 3.96 M/mm3 (4.2-5.4); White Blood Count 14.2 K/mm3 (4.4-11.0)
[2020-12-29 17:38] LABS: AST(SGOT) 12 U/L (15-37); Alanine Aminotransfer ALT/SGPT 25 U/L (13-56); Albumin, Serum 3.4 g/dL (3.2-5.0); Alkaline Phosphatase 59 U/L (45-117); Anion Gap 5 (5-15); BUN 12 mg/dL (7-18); BUN/Creat Ratio 15.6 RATIO (10-20); Calcium,Total 8.9 mg/dL (8.5-10.1); Chloride 109 mmol/L (98-107); Creatinine, Serum 0.77 mg/dL (0.55-1.02); EST Glomerular Filtration Rate 88 mL/min (>60); Est Glom Filt Rate - Afr Amer 107 mL/min (>60); Globulin 3.5 g/dL (2.2-4.2); Glucose 96 mg/dL (74-106); Potassium 3.8 mmol/L (3.5-5.1); Protein, Total 6.9 g/dL (6.4-8.2); Sodium Level 141 mmol/L (136-145); T4 Free Direct 1.03 ng/dL (0.76-1.46); Thyroid Stim Hormone (TSH) 0.64 uIU/mL (0.358-3.74)
[2020-12-29 17:59] LABS: Amphetamine Urine VISTA POSITIVE (<1000 ng/mL); Barbiturate Urine VISTA NEGATIVE (< 200 ng/mL); Benzodiazepine Urine VISTA NEGATIVE (< 200 ng/mL); Cocaine Urine VISTA NEGATIVE (< 300 ng/mL); Ecstacy Urine VISTA NEGATIVE (< 500 ng/mL); Methadone Urine VISTA NEGATIVE (< 300 ng/mL); PCP Urine VISTA NEGATIVE (< 25 ng/mL); THC Urine VISTA NEGATIVE (< 50 ng/mL); Vista UDS pH Range 7
== END ==
PROVIDERS: PCP Internal Medicine; Referring Provider Physician Assistant; Visit Provider Physician Assistant
DX: F31.9 Bipolar disorder, unspecified (principal); F42.9 Obsessive-compulsive disorder, unspecified
CPT/HCPCS: 36415; 80053; 80307; 84439; 84443; 85025

== ENCOUNTER → 2022-05-19 | Outpatient (CLI) | payer MEDICAID, SELFPAY ==
--- NOTE | 2022-05-19 13:50 | RAD_ITS ---
INDICATION: PAIN EXAMINATION/TECHNIQUE: X-RAY - RIGHT XR Hip Unilateral with Pelvis when performed; 2-3 Views 3 VIEWS COMPARISON: 05/31/2019 FINDINGS: SOFT TISSUES: No soft tissue swelling or gas. Stable lumbar fusion hardware. BONES/JOINTS: No acute fracture. Hip joint space is well-maintained bilaterally. No sclerotic or destructive changes observed. RAD/HIP, UNI W/ Pelvis 2-3 Views IMPRESSION: No acute abnormality. Electronically Signed: Travis Brian MD at 23:56 EST ,
== END | disposition home or self-care (01) ==
LOC: RAD 13:44
PROVIDERS: PCP Internal Medicine; Referring Provider Anesthesiology Pain Medicine; Visit Provider Anesthesiology Pain Medicine
DX: M25.551 Pain in right hip (principal)
CPT/HCPCS: 73502